=== PATIENT | female | born 1945 | race Two or more races ===

== ENCOUNTER 2017-07-02 17:07 | Emergency (ER) | payer MEDICARE, MEDICAID ==
[~2017-07-02] VITALS: Ht 157.5 cm; Wt 65.8 kg
[2017-07-02] MEDS ORDERED: MYRBETRIQ25 MG PO ×2 (17:22→20:11)
[2017-07-02 17:25] VITALS: BP 139/64
[2017-07-02] MEDS ORDERED: Ketorolac 30mg Inj IV ONE (17:45)
[2017-07-02 17:57] LABS: APPEARANCE,URINE CLEAR; BILIRUBIN, URINE NEGATIVE (NEGATIVE); COLOR,URINE PALE YELLOW; GLUCOSE, URINE (UA) NEGATIVE (NEGATIVE); KETONES,URINE NEGATIVE (NEGATIVE); LEUKOCYTE ESTERASE ,URINE 2+ (NEGATIVE); NITRITE,URINE NEGATIVE (NEGATIVE); PH,URINE 7 (4.5-8.0); PROTEIN,URINE NEGATIVE (NEGATIVE); UROBILINOGEN,URINE NORMAL MG/DL (0.0-1.0)
[2017-07-02 18:28] LABS: BASOPHILS % (AUTO) 0.8 % (0.0-2.0); EOSINOPHILS % (AUTO) 1.8 % (0.0-3.0); HEMATOCRIT 26.1 % (37.0-47.0); LYMPHOCYTES % (AUTO) 29.8 % (20.0-45.0); MEAN CORPUSCULAR VOLUME 59 FL (80-99); MONOCYTES % (AUTO) 13.5 % (1.0-10.0); NEUTROPHILS % (AUTO) 54.1 % (45.0-75.0); PLATELET COUNT 322 K/UL (150-450); RED BLOOD COUNT 4.41 M/UL (4.20-5.40); RED CELL DISTRIBUTION WIDTH 12.2 % (11.6-14.8); WHITE BLOOD COUNT 8.4 K/UL (4.8-10.8)
[2017-07-02 18:45] LABS: ANION GAP 6 mmol/L (5-15); BLOOD UREA NITROGEN 18 mg/dL (7-18); CARBON DIOXIDE 30 MMOL/L (21-32); CHLORIDE 103 MMOL/L (98-107); CREATININE 0.9 MG/DL (0.55-1.30); POTASSIUM 4.2 MMOL/L (3.5-5.1); SODIUM 138 MMOL/L (136-145)
--- NOTE | 2017-07-02 18:49 | Emergency Room Report ---
History of Present Illness General Chief Complaint: General Complaint Source: Patient Present Illness HPI [id number] walk-in with 2 weeks left flank pain and hematuria States history of renal stones Saw PMD?/nephro 2 weeks ago, had "xray" that showed 2 stones (i think she means CT) but no further action taken by doctor Denies associated abd pain, nausea/vomiting, diarrhea Didnt take OTC meds History of anemia, feels "weak and tired" lately Allergies: Coded Allergies: HYDROCODONE (Verified Allergy, Unknown, 07/02/17) IRON (Verified Allergy, Unknown, 07/02/17) MORPHINE (Verified Allergy, Unknown, 07/02/17) OXYCODONE (Verified Allergy, Unknown, 07/02/17) Patient History Past Medical History: other - Anemia, kidney stones Past Surgical History: none Pertinent Family History: none Social History: Denies: smoking, alcohol use, drug use Last Menstrual Period: 1988 Now: No Immunizations: UTD Reviewed Nursing Documentation: PMH: Agreed, PSxH: Agreed Review of Systems All Other Systems: negative except mentioned in HPI Physical Exam Vital Signs Date Time Temp Pulse Resp B/P (MAP) Pulse Ox O2 Delivery O2 Flow Rate FiO2 07/02/17 17:15 98.1 83 19 100/63 98 Room Air Sp02 EP Interpretation: reviewed, normal General Appearance: normal inspection, well appearing, no apparent distress, alert, GCS 15, non-toxic Head: normocephalic, atraumatic Eyes: bilateral eye PERRL, bilateral eye EOMI ENT: normal ENT inspection, hearing grossly normal, normal pharynx, no angioedema, normal voice, TMs + canals normal, uvula midline, moist mucus membranes Neck: normal inspection, full range of motion, supple, thyroid normal, no meningismus, no bony tend Respiratory: normal inspection, lungs clear, normal breath sounds, no rhonchi, no respiratory distress, no retraction, no accessory muscle use, no wheezing, speaking full sentences Cardiovascular #1: regular rate, rhythm, no edema, no JVD, normal capillary refill Gastrointestinal: normal inspection, normal bowel sounds, non tender, soft, no mass, no peritonitis, non-distended, no guarding, no hernia, no pulsatile mass Genitourinary: CVA tenderness (L) Musculoskeletal: normal inspection, back normal, normal range of motion, no calf tenderness, pelvis stable, Feng's Sign negative Neurologic: normal inspection, alert, oriented x3, responsive, trial consultant III-XII nml as tested, motor strength/tone normal, cerebellar normal, normal gait, speech normal Psychiatric: normal inspection, judgement/insight normal, mood/affect normal, no suicidal/homicidal ideation, no delusions Skin: normal inspection, normal color, no rash Lymphatic: normal inspection, no adenopathy Medical Decision Making Diagnostic Impression: Primary Impression: Anemia Qualified Codes: D50.9 - Iron deficiency anemia, unspecified Additional Impression: Pyelonephritis ER Course Left sided pain for 2 weeks with hematuria, + CVAT VSS, afebrile UA negative for hematuria, multiple WBCs Hb 8, symptomatic anemia. Will transfuse 2U PRBCs Empiric Rocephin given for UTI, ?Pyelo given flank pain, CVAT CT: no stones, or signs of recent ureter obstruction med/surg admission Dr Emmanuel admitted to at 9pm Cholo is PMD Rhythm Strip Diag. Results EP Interpretation: yes Rate: 73 Rhythm: NSR, no PVC's, no ectopy Last Vital Signs Date Time Temp Pulse Resp B/P (MAP) Pulse Ox O2 Delivery O2 Flow Rate FiO2 07/02/17 18:14 98.1 07/02/17 17:25 74 17 139/64 96 Room Air Status: improved Disposition: ADMITTED INPATIENT Condition: Stable KATELYNN JULIEN M.D. Jul 02, 2017 18:49
[2017-07-02 18:50] LABS: ALANINE AMINOTRANSFERASE 47 U/L (12-78); ALBUMIN 2.8 G/DL (3.4-5.0); ALBUMIN/GLOBULIN RATIO 0.6 (1.0-2.7); ALKALINE PHOSPHATASE 59 U/L (46-116); ASPARTATE AMINO TRANSFERASE 25 U/L (15-37); BILIRUBIN,TOTAL 0.2 MG/DL (0.2-1.0)
[2017-07-02] MEDS ORDERED: cefTRIAXone 1 GM in NS 55 ML IVPB ONE (19:00)
[2017-07-02 19:42] VITALS: BP 103/84
[2017-07-02] MEDS ORDERED: LYRICA75 M1 ORAL (20:11)
[2017-07-02] MEDS ORDERED: TEMAZEPAM7.5 MG ORAL (20:11)
[2017-07-02] MEDS ORDERED: LEVETIRACE100 MG/1 M PO (20:11)
[2017-07-02] MEDS ORDERED: DIPHENHYDRAMINE25 M1 ORAL (20:11)
[2017-07-02] MEDS ORDERED: ZANTAC150 MG ORAL (20:11)
[2017-07-02] MEDS ORDERED: ROXICODONE15 MG ORAL (20:11)
[2017-07-02] MEDS ORDERED: KEFLEX500 MG ORAL (21:35)
[2017-07-02 22:40] VITALS: BP 103/84
--- NOTE | 2017-07-03 10:21 | Diagnostic Imaging Report ---
Indication: Left flank pain Technique: Spiral acquisitions obtained through the abdomen and pelvis. No oral or IV contrast utilized, per urinary stone protocol. Multiplanar reconstructions were generated. Total dose length product 687.24 mGycm. CTDIvol(s) 14.36 mGy. Dose reduction achieved using automated exposure control Comparison: 10/04/2008 Findings: No ureteral calculi, hydronephrosis, or hydroureter. There is some scarring of the left kidney, particularly in the lower pole. There is a lower pole 12 mm calcification which is either parenchymal or calyceal, also demonstrated on the previous study. Other scattered calcifications likely represent a combination of parenchymal and calyceal calcifications. Lack of IV contrast limits assessment of the renal parenchyma. Multiple left renal cysts are again demonstrated. There is a lower pole right renal cyst as well as multiple subcentimeter low-attenuation right renal lesions which are too small to characterize. No right renal or ureteral calculi, right hydronephrosis or hydroureter. The bladder is nondistended, unremarkable. There is questionably slight indistinctness of the aortic margin and minimal infiltration of the periaortic fat surrounding the abdominal aorta. No evidence of aortic aneurysm demonstrated. Lack of IV contrast limits assessment of the other solid organs. There is a small gallstone present. The liver, pancreas are unremarkable. The spleen is enlarged, measuring 13.4 cm long axis dimension. The adrenals are unremarkable. The heart is enlarged. There is some atelectasis or scarring in the lingula and left lower lobe. Minimal scarring at the right medial lung base also demonstrated. Bones demonstrate degenerative spondylosis changes. There has been interim posterior fusion of L5 and S1, with fusion hardware in place. There are some degenerative changes of the right hip. The appendix is normal. No evidence of diverticulosis or diverticulitis. No small bowel distention. There is questionably trace fluid in the pelvic cul-de-sac. No free intraperitoneal air. There is questionable with small sliding-type hiatal hernia. The remainder the stomach is unremarkable. The duodenum is unremarkable. Impression: No evidence of hydronephrosis or ureteral calculus Multiple calcifications in the left kidney likely reflect a combination of calyceal calculi and dystrophic calcification secondary to parenchymal scarring. These are unchanged from the prior study of 10/04/2008 Interim development of indistinctness of the aortic wall and infiltration of the periaortic fat. This raises concern for vasculitis Cholelithiasis, also previously demonstrated Splenomegaly Interim spinal fusion Trace free pelvic fluid, of uncertain significance but not physiologic in a is menopausal female Questionable small sliding-type hiatal hernia Degenerative spondylosis Bilateral renal cysts. Subcentimeter low-attenuation right renal lesions, too small to characterize, most likely benign simple cysts. No further follow-up necessary The CT scanner at [facility] is accredited by the [employer] and the scans are performed using protocols designed to limit radiation exposure to as low as reasonably achievable to attain images of sufficient resolution adequate for diagnostic evaluation.
== END 2017-07-02 22:23 | disposition home or self-care (01) ==
LOC: EMR 18:45
DX: D64.9 Anemia, unspecified (principal); N12 Tubulo-interstitial nephritis, not specified as acute or chronic; Z88.5 Allergy status to narcotic agent; Z88.8 Allergy status to other drugs, medicaments and biological substances; K80.20 Calculus of gallbladder without cholecystitis without obstruction; R16.1 Splenomegaly, not elsewhere classified; Z98.1 Arthrodesis status; M47.817 Spondylosis without myelopathy or radiculopathy, lumbosacral region
CPT/HCPCS: 36415; 74176; 80053; 81003; 83690; 85025; 86850; 86900; 86901; 86920; 87086; 96361; 96365; 96375; 99284; J0696; J1885; P9016

== ENCOUNTER 2018-10-29 23:07 | Emergency (ER) | payer MEDICARE, MEDICAID ==
[~2018-10-29] VITALS: Ht 162.6 cm; Wt 65.8 kg
[~2018-10-29 23:07] MED LIST: DIPHENHYDRAMINE25 M1 ORAL; KEFLEX500 MG ORAL; LEVETIRACE100 MG/1 M PO; LYRICA75 M1 ORAL; MYRBETRIQ25 MG PO; ROXICODONE15 MG ORAL; TEMAZEPAM7.5 MG ORAL; ZANTAC150 MG ORAL
[2018-10-29 23:17] VITALS: BP 121/65
--- NOTE | 2018-10-29 23:19 | NUR ---
ER Nurse Note: Pt BIBA 861 from home c/o right knee pain. Pt stated she cannot walk, 10/10 sharp pain. Per pt; she stated she has pain in her right knee due to fluid build. Right knee is swollen, pain with slight touch. Pt stated she has a surgery on her right knee on January 04. Pt a&ox4, VSS, will continue to [facility].
[2018-10-29] MEDS ORDERED: Ketorolac 30mg Inj IV ONE (23:30)
[2018-10-30 00:01] LABS: BASOPHILS % (AUTO) 1.7 % (0.0-2.0); EOSINOPHILS % (AUTO) 2.8 % (0.0-3.0); HEMATOCRIT 31.6 % (37.0-47.0); HEMOGLOBIN 9.3 G/DL (12.0-16.0); LYMPHOCYTES % (AUTO) 31.5 % (20.0-45.0); MEAN CORPUSCULAR VOLUME 59 FL (80-99); MONOCYTES % (AUTO) 12.2 % (1.0-10.0); NEUTROPHILS % (AUTO) 51.8 % (45.0-75.0); PLATELET COUNT 191 K/UL (150-450); RED BLOOD COUNT 5.38 M/UL (4.20-5.40); RED CELL DISTRIBUTION WIDTH 13.5 % (11.6-14.8); WHITE BLOOD COUNT 8.1 K/UL (4.8-10.8)
[2018-10-30 00:14] LABS: ANION GAP 9 mmol/L (5-15); BLOOD UREA NITROGEN 24 mg/dL (7-18); CALCIUM 9.5 MG/DL (8.5-10.1); CARBON DIOXIDE 27 MMOL/L (21-32); CHLORIDE 105 MMOL/L (98-107); CREATININE 0.9 MG/DL (0.55-1.30); POTASSIUM 3.5 MMOL/L (3.5-5.1); SODIUM 141 MMOL/L (136-145)
[2018-10-30 00:19] LABS: ALANINE AMINOTRANSFERASE 22 U/L (12-78); ALBUMIN 3.3 G/DL (3.4-5.0); ALBUMIN/GLOBULIN RATIO 0.9 (1.0-2.7); ALKALINE PHOSPHATASE 79 U/L (46-116); ASPARTATE AMINO TRANSFERASE 13 U/L (15-37); BILIRUBIN,TOTAL 0.2 MG/DL (0.2-1.0)
--- NOTE | 2018-10-30 00:35 | Emergency Room Report ---
History of Present Illness General Chief Complaint: Pain Source: Patient Present Illness HPI Patient is a 73-year-old female presented after increased pain to the right knee. Patient had gradual onset of symptoms. She had reportedly had increased discomfort and was previously scheduled for arthroscopic surgery on her left knee. Patient had previously seen Dr. Chuy Russell. Patient is followed by Dr. Emmanuel. Patient stated that she had been having increased swelling as well as difficulty with bending her knee.Patient reports having allergies to multiple pain medications. She had prior history of anemia secondary to thalassemia Allergies: Coded Allergies: HYDROCODONE (Verified Allergy, Unknown, 07/02/17) IRON (Verified Allergy, Unknown, 07/02/17) MORPHINE (Verified Allergy, Unknown, 07/02/17) OXYCODONE (Verified Allergy, Unknown, 07/02/17) TRAMADOL (Unverified Allergy, Unknown, 10/29/18) Patient History Past Medical History: see triage record Last Menstrual Period: 1985 Now: No Reviewed Nursing Documentation: PMH: Agreed; PSxH: Agreed Nursing Documentation-PMH Past Medical History: No History, Except For Hx Hypertension: Yes Review of Systems All Other Systems: negative except mentioned in HPI Physical Exam Vital Signs Date Time Temp Pulse Resp B/P (MAP) Pulse Ox O2 Delivery O2 Flow Rate FiO2 10/29/18 23:01 97.7 76 17 121/65 (83) 98 Room Air Sp02 EP Interpretation: reviewed, normal General Appearance: normal inspection, well appearing, no apparent distress, alert, Chronically Ill Head: atraumatic ENT: normal ENT inspection, hearing grossly normal, normal voice Neck: normal inspection, full range of motion, supple, no bony tend Respiratory: normal inspection, lungs clear, normal breath sounds, no respiratory distress, no retraction, no wheezing Cardiovascular #1: regular rate, rhythm, no edema Gastrointestinal: normal inspection, normal bowel sounds, non tender, soft, no guarding, no hernia Genitourinary: no CVA tenderness Musculoskeletal: normal inspection, back normal, normal range of motion Neurologic: normal inspection, alert, responsive, speech normal Psychiatric: normal inspection, judgement/insight normal, mood/affect normal Skin: normal inspection, normal color, no rash Medical Decision Making Diagnostic Impression: Primary Impression: Meniscus, medial, derangement ER Course Patient presented for right knee pain. Differential diagnosis include was not limited to fracture, contusion, sprain, meniscal injury among others. Patient was noted to have long-standing pain to her knee. She was currently scheduled for orthopedic surgery for meniscal injury. X-ray imaging of the right knee read by radiology showed degenerative changes without evident fracture patient does not show any erythema or ligamentous instability of the knee. Patient was placed in a knee immobilizer and given prescription for topical analgesics. She was advised to follow-up with her orthopedic surgeon for recheck. Patient was advised to return if she had any worsening of condition or other concerns Last Vital Signs Date Time Temp Pulse Resp B/P (MAP) Pulse Ox O2 Delivery O2 Flow Rate FiO2 10/29/18 23:17 97.7 76 17 121/65 98 Room Air Status: improved Disposition: HOME, SELF-CARE Condition: Stable Scripts Diclofenac Sodium (VOLTAREN) 100 Gm Gel..gram. 100 GM TP DAILY, #120 GM Prov: Rivas Scales MD 10/30/18 Referrals: Jayesh Emmanuel MD (PCP) Rivas Scales MD Oct 30, 2018 00:35
--- NOTE | 2018-10-30 00:54 | NUR ---
ER Nurse Note: All orders completed per ERMD orders. Pt calm, coopearative, a&ox4, VSS. x-ray taken, awaiting results. Pt cleared for food and water; provided beverage to pt. All safety measures met; will continue to montior.
[2018-10-30] MEDS ORDERED: VOLTAREN100 G1 TP (01:18)
[2018-10-30 01:38] VITALS: BP 142/84
--- NOTE | 2018-10-30 01:40 | NUR ---
ER Nurse Note: All orders completed per ERMD orders. Pt seen, treated, medically cleared for discharge by ERMD. Discharge instructions given with repeat verbazliaion by pt. Instructed pt to follow up with primary care provider. Pt a&ox4, VSS, no signs of distress. ID band removed. IV removed; site clean and bandaged. Pt left with all belongings with steady gait via own transportation.
--- NOTE | 2018-10-30 10:14 | Diagnostic Imaging Report ---
Indication: Pain Knee pain/trauma 3 views of the right knee were obtained. Findings: No acute fracture, malalignment, or joint effusion are identified. Joint space is relatively well-maintained. Bones are osteopenic. The study is limited as the lateral view is oblique. Impression: Negative for acute findings.
== END 2018-10-30 01:41 | disposition home or self-care (01) ==
LOC: EDUNIT# 23:07 → EDBD 23:07 → EMR 23:30
DX: M23.303 Other meniscus derangements, unspecified medial meniscus, right knee (principal); Z88.6 Allergy status to analgesic agent; Z88.8 Allergy status to other drugs, medicaments and biological substances; I10 Essential (primary) hypertension
CPT/HCPCS: 29505; 36415; 73564; 80053; 85025; 85610; 85730; 96374; 99283; J1885

== ENCOUNTER 2019-06-30 18:48 | Inpatient (IN) | payer MEDICARE, MEDICAID ==
[~2019-06-30] VITALS: Ht 167.6 cm; Wt 73.5 kg
[~2019-06-30 18:48] MED LIST changes: +VOLTAREN100 G1 TP
--- NOTE | 2019-06-30 18:49 | NUR ---
ED Nurse Note: Patient brought into ED from home by ambulance RA 66 patient reports back pain radiating to her right toes for 1 week, which is getting worse. 03/08 today, unable to move out of the bed. patient is alert awake x3. patient on a hospital gown. on a cardiac monitors.
[2019-06-30] MEDS ORDERED: Morphine Sulfate 4mg/ml Inj (IV USE ONLY) IVP ONE (19:00)
[2019-06-30] MEDS ORDERED: DiphenhydrAMINE 50mg/ml Inj IVP ONE (19:00)
--- NOTE | 2019-06-30 19:00 | NUR ---
HAND-OFF: Report given to Talha Carrion RN.
[2019-06-30 19:06] VITALS: BP 156/115
--- NOTE | 2019-06-30 19:15 | NUR ---
ED Nurse Note: radiology at bedside for xray
--- NOTE | 2019-06-30 19:20 | NUR ---
ED Nurse Note: iv access established. blood collected; sent down to lab. unable to collecte urine; patient states she will provide when able.
--- NOTE | 2019-06-30 19:30 | NUR ---
ED Nurse Note: patient medicated; tolerated well. family at bedside. aware of pending admission. pt down to ct with 2 radioisotope technologist.
--- NOTE | 2019-06-30 19:35 | Diagnostic Imaging Report ---
History: CP Exam: XR CXR 1 VIEW Comparison: 08/01/2009 FINDINGS: Patchy bilateral increased areas of pulmonary markings now seen which may be related to chronic interstitial changes with a pneumonitis or mild edema difficult to entirely exclude. No focal consolidation or evidence of pleural effusion. The cardiac and mediastinal contours appear within limits. The visualized osseous structures appear within limits. IMPRESSION: Patchy bilateral increased areas of pulmonary markings now seen which may be related to chronic interstitial changes with a pneumonitis or mild edema difficult to entirely exclude. No focal consolidation or evidence of pleural effusion.
[2019-06-30 19:48] LABS: BASOPHILS % (AUTO) 1.5 % (0.0-2.0); EOSINOPHILS % (AUTO) 0.5 % (0.0-3.0); HEMATOCRIT 35.8 % (37.0-47.0); LYMPHOCYTES % (AUTO) 13.1 % (20.0-45.0); MEAN CORPUSCULAR VOLUME 59 FL (80-99); MONOCYTES % (AUTO) 9.7 % (1.0-10.0); NEUTROPHILS % (AUTO) 75.3 % (45.0-75.0); PLATELET COUNT 209 K/UL (150-450); RED BLOOD COUNT 6.03 M/UL (4.20-5.40); RED CELL DISTRIBUTION WIDTH 14.8 % (11.6-14.8); WHITE BLOOD COUNT 12.9 K/UL (4.8-10.8)
--- NOTE | 2019-06-30 19:50 | Emergency Room Report ---
History of Present Illness General Chief Complaint: Multiple Trauma/Fall Source: Patient Present Illness HPI Patient presents in acute distress Reporting that she had a fall towards her right side with pain to her right facial area patient reports that she has been bedbound for the past 5 to 6 days Home health nurse had reported that she should try and avoid hospitals today trying to get out of bed Patient feels that her legs did not have any energy also felt increased pain to be right leg and sustained a fall towards the right side Denies any chest pain denies any abdominal pain patient appears to have Urinated on herself after this fall Allergies: Coded Allergies: CODEINE (Unverified Allergy, Unknown, 06/30/19) HYDROCODONE (Verified Allergy, Unknown, 07/02/17) IRON (Verified Allergy, Unknown, 07/02/17) MORPHINE (Verified Allergy, Unknown, 07/02/17) OXYCODONE (Verified Allergy, Unknown, 07/02/17) TRAMADOL (Unverified Allergy, Unknown, 10/29/18) Patient History Past Medical History: see triage record Reviewed Nursing Documentation: PMH: Agreed; PSxH: Agreed Nursing Documentation-PMH Hx Hypertension: Yes Review of Systems All Other Systems: negative except mentioned in HPI Physical Exam Vital Signs Date Time Temp Pulse Resp B/P (MAP) Pulse Ox O2 Delivery O2 Flow Rate FiO2 06/30/19 18:39 98.4 96 16 201/98 (132) 98 Room Air Sp02 EP Interpretation: reviewed, normal General Appearance: mild distress - In acute pain Head: other - Ecchymosis and bruising to the right lateral eyebrow area Eyes: bilateral eye PERRL, bilateral eye EOMI ENT: EOM grossly intact, normal pharynx Neck: supple, no meningismus, no bony tend Respiratory: lungs clear, no respiratory distress, no retraction Cardiovascular #1: regular rate, rhythm Gastrointestinal: normal bowel sounds, non tender Genitourinary: no CVA tenderness Musculoskeletal: other - Patient has discomfort on palpation of the right posterior superior iliac crest also right-sided paralumbar region L4-L5 area Neurologic: alert, oriented x3 Psychiatric: normal inspection Skin: no rash Lymphatic: no adenopathy Medical Decision Making Diagnostic Impression: Primary Impression: Back pain Additional Impressions: Weakness Unable to ambulate ER Course Given the patient's history and presentation multiple differentials are in consideration including but not limited to neurological neurosurgical,, metabolic cardiac process patient had multiple imaging obtained no obvious acute process is seen Patient is mildly anemic Otherwise requiring multiple repeat pain medication patient also continues to complain of difficulty ambulating and will require further inpatient care Labs Test 06/30/19 19:20 07/01/19 11:30 White Blood Count 12.9 K/UL (4.8-10.8) Red Blood Count 6.03 M/UL (4.20-5.40) Hemoglobin 10.0 G/DL (12.0-16.0) Hematocrit 35.8 % (37.0-47.0) Mean Corpuscular Volume 59 FL (80-99) Mean Corpuscular Hemoglobin 16.6 PG (27.0-31.0) Mean Corpuscular Hemoglobin Concent 28.0 G/DL (32.0-36.0) Red Cell Distribution Width 14.8 % (11.6-14.8) Platelet Count 209 K/UL (150-450) Mean Platelet Volume 14.2 FL (6.5-10.1) Neutrophils (%) (Auto) 75.3 % (45.0-75.0) Lymphocytes (%) (Auto) 13.1 % (20.0-45.0) Monocytes (%) (Auto) 9.7 % (1.0-10.0) Eosinophils (%) (Auto) 0.5 % (0.0-3.0) Basophils (%) (Auto) 1.5 % (0.0-2.0) Prothrombin Time 10.2 SEC (9.30-11.50) Prothromb Time International Ratio 1.0 (0.9-1.1) Activated Partial Thromboplast Time 31 SEC (23-33) Sodium Level 140 MMOL/L (136-145) Potassium Level 3.8 MMOL/L (3.5-5.1) Chloride Level 101 MMOL/L (98-107) Carbon Dioxide Level 28 MMOL/L (21-32) Anion Gap 11 mmol/L (5-15) Blood Urea Nitrogen 17 mg/dL (7-18) Creatinine 0.8 MG/DL (0.55-1.30) Estimat Glomerular Filtration Rate mL/min (>60) Glucose Level 92 MG/DL (74-106) Calcium Level 9.7 MG/DL (8.5-10.1) Total Bilirubin 0.5 MG/DL (0.2-1.0) Aspartate Amino Transf (AST/SGOT) 24 U/L (15-37) Alanine Aminotransferase (ALT/SGPT) 25 U/L (12-78) Alkaline Phosphatase 92 U/L (46-116) Troponin I 0.000 ng/mL (0.000-0.056) Total Protein 7.9 G/DL (6.4-8.2) Albumin 4.0 G/DL (3.4-5.0) Globulin 3.9 g/dL Albumin/Globulin Ratio 1.0 (1.0-2.7) Urine Color Pale yellow Urine Appearance Clear Urine pH 5 (4.5-8.0) Urine Specific [place] 1.015 (1.005-1.035) Urine Protein Negative (NEGATIVE) Urine Glucose (UA) Negative (NEGATIVE) Urine Ketones Negative (NEGATIVE) Urine Blood 1+ (NEGATIVE) Urine Nitrite Negative (NEGATIVE) Urine Bilirubin Negative (NEGATIVE) Urine Urobilinogen Normal MG/DL (0.0-1.0) Urine Leukocyte Esterase 2+ (NEGATIVE) Urine RBC 0-2 /HPF (0 - 2) Urine WBC 20-30 /HPF (0 - 2) Urine Squamous Epithelial Cells Few /LPF (NONE/OCC) Urine Bacteria Few /HPF (NONE) Rhythm Strip Diag. Results EP Interpretation: yes Rate: 77 Rhythm: NSR, no PVC's, no ectopy Chest X-Ray Diagnostic Results Chest X-Ray Diagnostic Results : Chest X-Ray Ordered: Yes # of Views/Limited/Complete: 1 View Indication: Chest Pain EP Interpretation: Yes Interpretation: no consolidation, no effusion, no pneumothorax Impression: No acute disease Electronically Signed by: Malathi Cruz DO CT/MRI/US Diagnostic Results CT/MRI/US Diagnostic Results : Impression CT L-spineIMPRESSION: No fracture or malalignment. Status post L4-5 fusion and laminectomy with spray artifact from bilateral hardware. Hardware appears intact. CT pelvic: no Acute disease CT head no acute disease Last Vital Signs Date Time Temp Pulse Resp B/P (MAP) Pulse Ox O2 Delivery O2 Flow Rate FiO2 06/30/19 19:07 96 21 Room Air 06/30/19 19:06 98.4 156/115 93 Status: improved Disposition: ADMITTED INPATIENT Condition: Serious Malathi Cruz DO Jun 30, 2019 19:50
--- NOTE | 2019-06-30 20:00 | NUR ---
ED Nurse Note: pt back from imaging. nad. reattached to monitor. will continue to monitor
[2019-06-30 20:18] LABS: ANION GAP 11 mmol/L (5-15); BLOOD UREA NITROGEN 17 mg/dL (7-18); CALCIUM 9.7 MG/DL (8.5-10.1); CARBON DIOXIDE 28 MMOL/L (21-32); CHLORIDE 101 MMOL/L (98-107); CREATININE 0.8 MG/DL (0.55-1.30); POTASSIUM 3.8 MMOL/L (3.5-5.1); SODIUM 140 MMOL/L (136-145)
[2019-06-30 20:22] LABS: ALANINE AMINOTRANSFERASE 25 U/L (12-78); ALKALINE PHOSPHATASE 92 U/L (46-116); ASPARTATE AMINO TRANSFERASE 24 U/L (15-37); BILIRUBIN,TOTAL 0.5 MG/DL (0.2-1.0)
--- NOTE | 2019-06-30 20:35 | Diagnostic Imaging Report ---
History: TRAUMA Exam: CT L SPINE Without Contrast Technique more: CTDI is 21.70 mGy and DLP is 911.30 mGy-cm. Technique more: One or more of the following dose reduction techniques were used: automated exposure control, adjustment of the mA and/or kV according to patient size, use of iterative reconstruction technique. Comparison: None available FINDINGS: No fracture or malalignment. Status post L4-5 fusion and laminectomy with spray artifact from bilateral hardware. Hardware appears intact. Left-sided renal stones and calcifications with areas of cystic change. IMPRESSION: No fracture or malalignment. Status post L4-5 fusion and laminectomy with spray artifact from bilateral hardware. Hardware appears intact.
--- NOTE | 2019-06-30 20:38 | Diagnostic Imaging Report ---
History: TRAUMA Exam: CT HEAD Without Contrast Technique more: CTDI is 62.70 mGy and DLP is 1363.60 mGy-cm. Technique more: One or more of the following dose reduction techniques were used: automated exposure control, adjustment of the mA and/or kV according to patient size, use of iterative reconstruction technique. Comparison: None available FINDINGS: No intracranial hemorrhage, mass effect or calvarial fracture. The ventricles are within limits and midline. Right periorbital soft tissue swelling. The visualized paranasal sinuses, mastoids and orbits otherwise appear within limits. IMPRESSION: No intracranial hemorrhage, mass effect or calvarial fracture. Right periorbital soft tissue swelling.
--- NOTE | 2019-06-30 20:52 | Diagnostic Imaging Report ---
History: TRAUMA Exam: CT PELVIS Without Contrast Technique more: CTDI is 23.60 mGy and DLP is 889.90 mGy-cm. Technique more: One or more of the following dose reduction techniques were used: automated exposure control, adjustment of the mA and/or kV according to patient size, use of iterative reconstruction technique. Comparison: None available FINDINGS: No fracture or dislocation. No evidence of pelvic hematoma. Bilateral hamstring calcific tendinopathy suggested at the ischial tuberosities. Mild appearing left hip osteoarthrosis noted. Symmetric appearing SI joints and pubic symphysis appear intact. Possible herniation pit proximal right femur, incidental. IMPRESSION: No fracture or dislocation. No evidence of pelvic hematoma.
[2019-06-30 21:00] VITALS: BP 146/106
--- NOTE | 2019-06-30 21:55 | NUR ---
TRANSFER TO FLOOR: Patient transferred to [facility]-1 as ordered, per YORDAN MCFARLAND. Report given to TONE NORIEGA. PATIENT STABLE FOR TRANSFER. PT TRANSFERRED TO UNIT VIA GURNEY WITH [facility]. BELONGINGS AND ADMISSION PACKET SENT WITH PATIENT.
--- NOTE | 2019-06-30 22:10 | NUR ---
NURSE NOTES: Pt. received from Talha Carrion RN. Pt. AAOx4, on NC 2L, complaints of pain in right hip radiating to right lower extremity, no indications of respiratory distress at this time. IV right AC 18g asymptomatic, intact, and patent; saline locked. VS stable, skin intact, belongings checked and signed. Pt. oriented to room and floor. Will follow up with primary for admission orders. Bed is low and locked, side rails x2 up, bed alarm active, and call light is in reach. Will continue to monitor.
[2019-06-30] MEDS: Morphine Sulfate 2mg/ml Inj(IV/IM USE ONLY) IVP PRN (23:32)
[2019-07-01] VITALS: BP 131/71
[2019-07-01 04:00] VITALS: BP 146/69
[2019-07-01] MEDS: Morphine Sulfate 2mg/ml Inj(IV/IM USE ONLY) IVP PRN (04:32)
--- NOTE | 2019-07-01 05:20 | NUR ---
NURSE NOTES: Andry Kemp (pt.'s Son): [phone] Elham (pt.'s Rjzyciam-bj-nrp): [phone]
--- NOTE | 2019-07-01 07:48 | NUR ---
HAND-OFF: Report given to HARI Javier.
[2019-07-01 08:00] VITALS: BP 115/55
--- NOTE | 2019-07-01 08:00 | NUR ---
NURSE NOTES: received patient in bed, complaint of lower back pain with radiation to RLE. Pain medication not being managed by current pain med regimen, will contact provider. On 2L O2/min, no respiratory distress noted. Skin intact. RAC IV access, receives IVF. Bed locked at the lowest position possible, call light within easy reach, siderails up x2. Will continue to monitor patient and follow up with the plan of care.
[2019-07-01] MEDS: HYDROmorphone 1mg/ml Carpuject IVP PRN ×4 (09:39→23:05)
[2019-07-01] MEDS: Heparin 5000 units/ml inj SUBQ SCH ×2 (09:41→20:49)
[2019-07-01 12:00] VITALS: BP 113/70
[2019-07-01 12:02] LABS: APPEARANCE,URINE CLEAR; BILIRUBIN, URINE NEGATIVE (NEGATIVE); COLOR,URINE PALE YELLOW; GLUCOSE, URINE (UA) NEGATIVE (NEGATIVE); KETONES,URINE NEGATIVE (NEGATIVE); LEUKOCYTE ESTERASE ,URINE 2+ (NEGATIVE); NITRITE,URINE NEGATIVE (NEGATIVE); PH,URINE 5 (4.5-8.0); PROTEIN,URINE NEGATIVE (NEGATIVE); UROBILINOGEN,URINE NORMAL MG/DL (0.0-1.0)
--- NOTE | 2019-07-01 15:15 | History and Physical Report ---
DATE OF ADMISSION: 06/30/2019 CHIEF COMPLAINT: Back pain. HISTORY OF PRESENT ILLNESS: The patient is a 74-year-old female well known to me. She has a history of hypertensive heart disease, thalassemia. She presented from home with complaints of severe intractable back pain. According to the patient, she developed back pain approximately a week ago. It has become progressively worse and more severe. She has had prior back surgery done around outside hospital. According to the patient, she did sustain a fall at some point yesterday but is unclear. She has incontinence. She has had no focal weakness but her range of motion and activity is limited by severe pain. No reports of any fevers or chills. PAST MEDICAL HISTORY: As above. PAST SURGICAL HISTORY: Includes back surgery. CURRENT MEDICATIONS: Reconciled and reviewed. ALLERGIES: Include codeine, hydrocodone, oxycodone, tramadol, iron. FAMILY HISTORY: Noncontributory. SOCIAL HISTORY: Negative for tobacco, ethanol, or drugs. REVIEW OF SYSTEMS: GENERAL: No fever or chills. HEENT: No headaches or visual changes. CARDIOPULMONARY: No chest pain or shortness of breath. GASTROINTESTINAL: No nausea or vomiting. GENITOURINARY: No urgency, frequency. MUSCULOSKELETAL: No joint pain or swelling. NEUROLOGIC: No evidence of seizures. PHYSICAL EXAMINATION: VITAL SIGNS: Temperature 99.5, pulse 81, respirations 18, and blood pressure 146/69. GENERAL: The patient is well developed, she is in moderate amount of distress due to back pain. NECK: Supple. HEART: Regular rate and rhythm. LUNGS: Clear. ABDOMEN: Soft, nontender, nondistended. EXTREMITIES: Without clubbing, cyanosis, or edema. PERTINENT DATA: CT of the spine shows no fracture. There is evidence of an old L4-L5 fusion and laminectomy noted. White count 13,000, hemoglobin 10. Sodium 140. ASSESSMENT: This is a 74-year-old female admitted with complaints of back pain, the etiology of which is unclear. Suspect radiculopathy from disk disease but cannot rule out a fracture. PLAN: 1. MRI of the lumbar spine. 2. IV pain medications for pain control. 3. Check urinalysis. Dov Uomoto, M.D. DR: Tejas JOB#: [id number] CC:
[2019-07-01 16:00] VITALS: BP 123/72
--- NOTE | 2019-07-01 19:38 | NUR ---
HAND-OFF: Report given to HARI Peoples.
--- NOTE | 2019-07-01 19:40 | NUR ---
NURSE NOTES: Received patient on bed, awake and verbally responsive. denies any pain or discomfort. on 02 cannula @2lpm. no sob. iv line on the right ac. reiterated to call or ask for assistance. bed locked and in lowest position. call light and light button within easy reach. will continue plan of care.
[2019-07-01 20:00] VITALS: BP 120/70
[2019-07-02] VITALS: BP 135/76
[2019-07-02 04:00] VITALS: BP 119/76
--- NOTE | 2019-07-02 05:00 | NUR ---
NURSE NOTES: paged dr. castro regarding the fever from 100.6 and went down after 30 mins.
--- NOTE | 2019-07-02 07:31 | NUR ---
HAND-OFF: Report given to elizabeth soto.endorsed to f/u to md regarding feverx1.
[2019-07-02 08:00] VITALS: BP 137/61
[2019-07-02] MEDS: HYDROmorphone 1mg/ml Carpuject IVP PRN ×4 (08:01→21:13)
--- NOTE | 2019-07-02 08:40 | General Progress Note ---
Assessment/Plan Problem List: (1) Fever ICD Codes: R50.9 - Fever, unspecified SNOMED: 697736370 (2) UTI (urinary tract infection) ICD Codes: N39.0 - Urinary tract infection, site not specified SNOMED: 35420974 (3) Back pain ICD Codes: M54.9 - Dorsalgia, unspecified SNOMED: 018498653 (4) Weakness ICD Codes: R53.1 - Weakness SNOMED: 66996329 (5) Unable to ambulate ICD Codes: R26.2 - Difficulty in walking, not elsewhere classified SNOMED: 489529004 Status: stable, not improved Assessment/Plan: dc ivf lasix x 1 iv abx ordered follow up cultures mri spine Subjective ROS Limited/Unobtainable: No Constitutional: Reports: malaise, weakness HEENT: Reports: no symptoms Cardiovascular: Reports: no symptoms Respiratory: Reports: cough, shortness of breath Gastrointestinal/Abdominal: Reports: no symptoms Genitourinary: Reports: no symptoms Neurologic/Psychiatric: Reports: no symptoms Endocrine: Reports: no symptoms Hematologic/Lymphatic: Reports: no symptoms Allergies: Coded Allergies: CODEINE (Unverified Allergy, Unknown, 06/30/19) HYDROCODONE (Verified Allergy, Unknown, 07/02/17) IRON (Verified Allergy, Unknown, 07/02/17) MORPHINE (Verified Allergy, Unknown, 07/02/17) OXYCODONE (Verified Allergy, Unknown, 07/02/17) TRAMADOL (Unverified Allergy, Unknown, 10/29/18) All Systems: reviewed and negative except above Subjective no events. c/o pain. +fevers.+sob. back pain not any better Objective Last 24 Hour Vital Signs Date Time Temp Pulse Resp B/P (MAP) Pulse Ox O2 Delivery O2 Flow Rate FiO2 07/02/19 04:00 98.9 77 19 119/76 (90) 96 07/02/19 01:05 98.5 07/02/19 00:00 100.6 76 20 135/76 (95) 96 07/01/19 21:00 Nasal Cannula 2.0 07/01/19 20:00 97.6 72 19 120/70 (87) 94 07/01/19 18:44 97.6 07/01/19 16:00 97.6 79 18 123/72 (89) 93 07/01/19 12:00 98.3 84 18 113/70 (84) 95 07/01/19 09:00 Nasal Cannula 2.0 07/01/19 09:00 Nasal Cannula 2.0 Intake and Output 07/01/19 07/02/19 19:00 07:00 Intake Total 1625 ml 560 ml Balance 1625 ml 560 ml Intake Oral 560 ml IV Total 825 ml Other 800 ml # Voids 5 Laboratory Tests 07/01/19 11:30: Urine Color Pale yellow, Urine Appearance Clear, Urine pH 5, Urine Specific [place] 1.015, Urine Protein Negative, Urine Glucose (UA) Negative, Urine Ketones Negative, Urine Blood 1+H, Urine Nitrite Negative, Urine Bilirubin Negative, Urine Urobilinogen Normal, Urine Leukocyte Esterase 2+H, Urine RBC 0-2 , Urine WBC 20-30H, Urine Squamous Epithelial Cells Few, Urine Bacteria Few Height (Feet): 5 Height (Inches): 6.00 Weight (Pounds): 160 General Appearance: WD/WN, alert Neck: supple Cardiovascular: normal rate, regular rhythm Respiratory/Chest: rhonchi - bilaterally Abdomen: normal bowel sounds, non tender, soft, no organomegaly Edema: no edema noted Arm (L), no edema noted Arm (R), no edema noted Leg (L), no edema noted Leg (R), no edema noted Pedal (L), no edema noted Pedal (R), no edema noted Generalized Dov Watson MD Jul 02, 2019 08:40
[2019-07-02] MEDS: Heparin 5000 units/ml inj SUBQ SCH ×2 (09:17→21:12)
--- NOTE | 2019-07-02 09:25 | NUR ---
PT EVALUATION NOTE Patient seen for initial evaluation. Patient presents with generalized weakness and pain which impairs patient's ability to perform mobility tasks safely. Patient requires mod/max assist to roll to the left, declined to roll to the right or to perform OOB activities due to pain RLE. Patient will benefit from skilled inpatient PT intervention to address strength, balance and safety for improved level of independence with functional mobility. Recommend discharge to SNF for short term rehab once medically cleared by MD as patient lives alone. Patient may benefit from use of FWW for ambulation depending on patient's progress. Addendum: 07/02/19 at 1119 by REGIS HALL PT Amended: Links added.
[2019-07-02 09:51] LABS: BASOPHILS % (AUTO) 1.8 % (0.0-2.0); EOSINOPHILS % (AUTO) 0.6 % (0.0-3.0); HEMATOCRIT 27.9 % (37.0-47.0); HEMOGLOBIN 8.6 G/DL (12.0-16.0); LYMPHOCYTES % (AUTO) 25.5 % (20.0-45.0); MEAN CORPUSCULAR VOLUME 58 FL (80-99); MONOCYTES % (AUTO) 12.1 % (1.0-10.0); NEUTROPHILS % (AUTO) 60.1 % (45.0-75.0); PLATELET COUNT 173 K/UL (150-450); RED BLOOD COUNT 4.83 M/UL (4.20-5.40); RED CELL DISTRIBUTION WIDTH 13.1 % (11.6-14.8); WHITE BLOOD COUNT 9.1 K/UL (4.8-10.8)
[2019-07-02] MEDS: Piperacillin/Tazobactam 3.375 GM in NS 110 ML IVPB SCH ×2 (10:00→21:12)
[2019-07-02 10:17] LABS: ALANINE AMINOTRANSFERASE 22 U/L (12-78); ALBUMIN 2.9 G/DL (3.4-5.0); ALBUMIN/GLOBULIN RATIO 0.7 (1.0-2.7); ALKALINE PHOSPHATASE 66 U/L (46-116); ANION GAP 7 mmol/L (5-15); ASPARTATE AMINO TRANSFERASE 15 U/L (15-37); BILIRUBIN,TOTAL 0.4 MG/DL (0.2-1.0); BLOOD UREA NITROGEN 17 mg/dL (7-18); CALCIUM 9.2 MG/DL (8.5-10.1); CARBON DIOXIDE 28 MMOL/L (21-32); CHLORIDE 105 MMOL/L (98-107); CREATININE 0.9 MG/DL (0.55-1.30); SODIUM 140 MMOL/L (136-145)
--- NOTE | 2019-07-02 10:36 | NUR ---
MRI LUMBAR COMPLETED.
[2019-07-02 12:00] VITALS: BP 131/72
--- NOTE | 2019-07-02 13:57 | NUR ---
CASE MANAGEMENT:INITIAL REVIEW 06/30/2019 74 YR OLD FEMALE BIBA FROM HOME CC;MULTIPLE TRAUMA, FALL SI;BACK PAIN, WEAKNESS, UNABLE TO AMBULATE 98.4 96 21 201/98 93% ON RA WBC 12.9 H/H 10/35.8 SPINE, PELVIS, HEAD CT - NO FRACTURE, RIGHT PERIORBITAL SWELLING CXR - No focal consolidation or evidence of pleural effusion. S;IVF NS BOLUS X1 BENADRYL IV X1 ZOFRAN IV X1 ADMITTED TO MED SURG MED SURG STATUS DCP;FROM HOME CASE MANAGEMENT:REVIEW SI;FEVER, BACK PAIN, WEAKNESS, UNABLE TO AMBULATE, UTI 100.6 81 20 137/61 93% ON 2L NC H/H 8.6/27.9 IS;ZOSYN OV Q8 HRS HEPARIN SUBQ Q12 HRS DILAUDID IV Q4 HRS MORPHINE IV Q4 HRS MED SURG STATUS DCP;FROM HOME
[2019-07-02 16:00] VITALS: BP 109/67
--- NOTE | 2019-07-02 17:18 | Diagnostic Imaging Report ---
Indication: Back pain Technique: MRI examination of the lumbar spine was performed in a 1.5 Delmy magnet. Sequences obtained include sagittal and axial T1 and T2 fast spin echo, and sagittal STIR. Comparison: none Findings: Alignment: Normal Bone marrow signal: Normal Distal spinal cord/conus medullaris. Conus is seen at L1. The distal spinal cord is unremarkable. T12-L1: The central canal is patent. There is patency of the lateral recess and neural foramina demonstrated. Facets are unremarkable. The intervertebral disc appears normal in height. L1-2:The central canal is patent. There is patency of the lateral recess and neural foramina demonstrated. Facets are unremarkable. The intervertebral disc appears normal in height. L2-3:The central canal is patent. There is patency of the lateral recess and neural foramina demonstrated. Facets are mildly hypertrophic. The intervertebral disc appears normal in height. L3-4: There is loss of disc height, mild in degree. There is severe hypertrophy of the facets and ligamentum flavum. The neural foramina are partially obscured by hardware with the pedicle screws noted at L4. There is suggestion of foraminal stenosis mild to moderate in degree at this level. There is severe central canal stenosis at this level. There is narrowing of the lateral recess on the right. On the left the lateral recesses largely obscured by hardware. L4-5: There is loss of disc height. Laminectomy is noted at this level. Bilateral pedicle screws fusion rods demonstrated at L4 and at L5. The central canal is patent. There is no definite narrowing of the lateral recess. There is moderate to severe bilateral foraminal stenosis. Facets appear hypertrophic. L5-S1: Disc height is normal. There is narrowing of the lateral recess. Laminectomy noted at this level. Central AP diameter of the canal is well preserved. However hypertrophic facets compress on the lateral aspect of the canal. There is moderate to severe bilateral foraminal stenosis. Incidental findings: There are multiple cysts within both kidneys of varying size. Small bilateral pleural effusions are also suspected. IMPRESSION: Status post laminectomy at L4-5 and L5-S1 with fusion at both of these levels. Posterior pedicle screws and fusion rods and resultant susceptibility artifact limiting evaluation. Multilevel degenerative disease as described above. L3-4 is the most severe level showing severe stenosis of the central canal. Severe facet arthropathy ligamentum flavum redundancy. Right lateral recess narrowing. Obscured left lateral recess. Mild to moderate neural foraminal stenosis. L4-5: Moderate to severe neural foraminal stenosis due to facet arthropathy. L5-S1: Moderate to severe neural foraminal stenosis due to facet arthropathy. Narrowing of the lateral recess. Multiple bilateral renal cysts.
--- NOTE | 2019-07-02 19:41 | NUR ---
HAND-OFF: Report given to HARI [place].
--- NOTE | 2019-07-02 19:58 | NUR ---
NURSE NOTES: Received patient comfortably resting in bed without complaints.
[2019-07-02 20:31] VITALS: BP 120/61
[2019-07-03 00:22] VITALS: BP 127/57
[2019-07-03 04:00] VITALS: BP_SYST 117; BP_SYST 148; BP_DIAS 57; BP_DIAS 65
[2019-07-03] MEDS: Piperacillin/Tazobactam 3.375 GM in NS 110 ML IVPB SCH ×3 (04:38→20:33)
[2019-07-03 07:13] LABS: ALANINE AMINOTRANSFERASE 20 U/L (12-78); ALBUMIN 2.7 G/DL (3.4-5.0); ALBUMIN/GLOBULIN RATIO 0.7 (1.0-2.7); ALKALINE PHOSPHATASE 55 U/L (46-116); ANION GAP 4 mmol/L (5-15); ASPARTATE AMINO TRANSFERASE 14 U/L (15-37); BILIRUBIN,TOTAL 0.5 MG/DL (0.2-1.0); BLOOD UREA NITROGEN 22 mg/dL (7-18); CARBON DIOXIDE 31 MMOL/L (21-32); CHLORIDE 101 MMOL/L (98-107); CREATININE 1.1 MG/DL (0.55-1.30); POTASSIUM 3.2 MMOL/L (3.5-5.1); SODIUM 136 MMOL/L (136-145)
--- NOTE | 2019-07-03 07:23 | NUR ---
HAND-OFF: Report given to Taye Medina RN.
--- NOTE | 2019-07-03 07:24 | NUR ---
NURSE NOTES: Report received from Kapil NORIEGA. Patient is awake and alert x 4 eating breakfast. Patient currently on room air, does not appear to be in respiratory distress. 20 nicolasa IV noted in right ac, patent and flushes. Bedside commode at bedside, educated patient to call when wanting to get up to use commode. patient communicated she would. Patient has no complaints at this time. Will continue to follow plan of care.
[2019-07-03 08:00] VITALS: BP 120/54
[2019-07-03] MEDS: Heparin 5000 units/ml inj SUBQ SCH ×2 (08:35→20:33)
[2019-07-03 12:00] VITALS: BP 132/65
[2019-07-03] MEDS: Morphine Sulfate 2mg/ml Inj(IV/IM USE ONLY) IVP PRN (14:16)
--- NOTE | 2019-07-03 14:54 | General Progress Note ---
Assessment/Plan Problem List: (1) Fever ICD Codes: R50.9 - Fever, unspecified SNOMED: 583185008 (2) UTI (urinary tract infection) ICD Codes: N39.0 - Urinary tract infection, site not specified SNOMED: 75783660 (3) Back pain ICD Codes: M54.9 - Dorsalgia, unspecified SNOMED: 833901601 (4) Weakness ICD Codes: R53.1 - Weakness SNOMED: 47762266 (5) Unable to ambulate ICD Codes: R26.2 - Difficulty in walking, not elsewhere classified SNOMED: 310687782 Status: stable, not improved Assessment/Plan: dc ivf iv pain rx spin consult iv abx ordered follow up cultures mri spine reviewed. Subjective ROS Limited/Unobtainable: No Constitutional: Reports: malaise, weakness HEENT: Reports: no symptoms Cardiovascular: Reports: no symptoms Respiratory: Reports: no symptoms Gastrointestinal/Abdominal: Reports: no symptoms Genitourinary: Reports: no symptoms Neurologic/Psychiatric: Reports: numbness, paresthesia, tingling Endocrine: Reports: no symptoms Hematologic/Lymphatic: Reports: no symptoms Allergies: Coded Allergies: CODEINE (Unverified Allergy, Unknown, 06/30/19) HYDROCODONE (Verified Allergy, Unknown, 07/02/17) IRON (Verified Allergy, Unknown, 07/02/17) MORPHINE (Verified Allergy, Unknown, 07/02/17) OXYCODONE (Verified Allergy, Unknown, 07/02/17) TRAMADOL (Unverified Allergy, Unknown, 10/29/18) All Systems: reviewed and negative except above Subjective no events. c/o pain. fevers better. on abx for uti. +sob. back pain not any better. on iv pain. severe spinal stenosis on mri Objective Last 24 Hour Vital Signs Date Time Temp Pulse Resp B/P (MAP) Pulse Ox O2 Delivery O2 Flow Rate FiO2 07/03/19 12:00 98.0 82 18 132/65 (87) 94 07/03/19 09:00 Nasal Cannula 2.0 07/03/19 08:00 97.6 88 18 120/54 (76) 93 07/03/19 04:00 99.0 84 19 117/57 (77) 91 07/03/19 00:22 100.0 99 19 127/57 (80) 92 07/02/19 21:43 99.8 07/02/19 21:00 Nasal Cannula 2.0 07/02/19 20:31 99.8 103 19 120/61 (80) 92 07/02/19 16:00 98.0 109 17 109/67 (81) 95 Intake and Output 07/02/19 07/03/19 19:00 07:00 Intake Total 905 ml 165.0 ml Balance 905 ml 165.0 ml IV Total 105 ml 165.0 ml Other 800 ml # Voids 1 Laboratory Tests 07/03/19 06:05: Sodium Level 136, Potassium Level 3.2L, Chloride Level 101, Carbon Dioxide Level 31, Anion Gap 4L, Blood Urea Nitrogen 22H, Creatinine 1.1, Estimat Glomerular Filtration Rate , Glucose Level 117H, Calcium Level 9.0, Total Bilirubin 0.5, Aspartate Amino Transf (AST/SGOT) 14L, Alanine Aminotransferase ( ALT/SGPT) 20, Alkaline Phosphatase 55, Total Protein 6.7, Albumin 2.7L, Globulin 4.0, Albumin/Globulin Ratio 0.7L Height (Feet): 5 Height (Inches): 6.00 Weight (Pounds): 160 Objective General Appearance: WD/WN, alert Neck: supple Cardiovascular: normal rate, regular rhythm Respiratory/Chest: rhonchi - bilaterally Abdomen: normal bowel sounds, non tender, soft, no organomegaly Edema: no edema noted Arm (L), no edema noted Arm (R), no edema noted Leg (L), no edema noted Leg (R), no edema noted Pedal (L), no edema noted Pedal (R), no edema noted Generalized Dov Watson MD Jul 03, 2019 14:54
[2019-07-03 16:00] VITALS: BP 107/64
[2019-07-03] MEDS: Cyclobenzaprine 10mg Tab ORAL SCH (17:51)
--- NOTE | 2019-07-03 19:01 | NUR ---
HAND-OFF: Report given to Dariana NORIEGA.Patient in stable condition.
--- NOTE | 2019-07-03 19:59 | NUR ---
NURSE NOTES: Received patient awake, verbal, resting in bed, no complaints.
[2019-07-03 20:10] VITALS: BP 130/69
[2019-07-04 00:36] VITALS: BP 127/66
[2019-07-04] MEDS: Piperacillin/Tazobactam 3.375 GM in NS 110 ML IVPB SCH ×3 (03:54→23:00)
[2019-07-04 04:34] VITALS: BP 126/64
--- NOTE | 2019-07-04 07:13 | NUR ---
HAND-OFF: Report given to Emerita Sandoval RN.
--- NOTE | 2019-07-04 07:17 | NUR ---
NURSE NOTES: received report from HARI [place]. patient in bed, alert. oriented. verbally responsive. no respiratory distress noted. discomfort on back. seen by matthew Butler at the bedside. patient will be stay two to three days more for pain control and dc home. anticipate surgery next week. IV on LFA20, RFA22 intact. bed in the lowest position and locked. call light within reach. bedside commode. will continue to provide plan of care. Lspinal x ray expecting today.
--- NOTE | 2019-07-04 07:39 | General Progress Note ---
Assessment/Plan Problem List: (1) Fever ICD Codes: R50.9 - Fever, unspecified SNOMED: 556437904 (2) UTI (urinary tract infection) ICD Codes: N39.0 - Urinary tract infection, site not specified SNOMED: 00218479 (3) Back pain ICD Codes: M54.9 - Dorsalgia, unspecified SNOMED: 437660410 (4) Weakness ICD Codes: R53.1 - Weakness SNOMED: 50710418 (5) Unable to ambulate ICD Codes: R26.2 - Difficulty in walking, not elsewhere classified SNOMED: 499399673 Status: stable, not improved Assessment/Plan: dc ivf iv pain rx po steroids muscle relaxants. spin consult - may ultimately need surgery iv abx ordered follow up cultures mri spine reviewed. Subjective ROS Limited/Unobtainable: No Constitutional: Reports: malaise, weakness HEENT: Reports: no symptoms Cardiovascular: Reports: no symptoms Respiratory: Reports: shortness of breath Gastrointestinal/Abdominal: Reports: no symptoms Genitourinary: Reports: no symptoms Neurologic/Psychiatric: Reports: no symptoms Endocrine: Reports: no symptoms Hematologic/Lymphatic: Reports: no symptoms Allergies: Coded Allergies: CODEINE (Unverified Allergy, Unknown, 06/30/19) HYDROCODONE (Verified Allergy, Unknown, 07/02/17) IRON (Verified Allergy, Unknown, 07/02/17) MORPHINE (Verified Allergy, Unknown, 07/02/17) OXYCODONE (Verified Allergy, Unknown, 07/02/17) TRAMADOL (Unverified Allergy, Unknown, 10/29/18) All Systems: reviewed and negative except above Subjective have severe pain after therapy. pain better controlled this am- started on steroids, dilaudid, and muscle relaxants. no focal weakness or numbness. no incontinence Objective Last 24 Hour Vital Signs Date Time Temp Pulse Resp B/P (MAP) Pulse Ox O2 Delivery O2 Flow Rate FiO2 07/04/19 04:34 98.0 57 18 126/64 (84) 94 07/04/19 00:36 98.2 89 16 127/66 (86) 91 07/03/19 21:06 Nasal Cannula 2.0 07/03/19 20:10 98.4 92 17 130/69 (89) 91 07/03/19 16:00 97.6 86 18 107/64 (78) 95 07/03/19 12:00 98.0 82 18 132/65 (87) 94 07/03/19 09:00 Nasal Cannula 2.0 07/03/19 08:00 97.6 88 18 120/54 (76) 93 Intake and Output 07/03/19 07/04/19 19:00 07:00 Intake Total 765.0 ml 552.5 ml Balance 765.0 ml 552.5 ml Intake Oral 360 ml IV Total 165.0 ml 192.5 ml Other 600 ml # Voids 1 Height (Feet): 5 Height (Inches): 6.00 Weight (Pounds): 162 Objective General Appearance: WD/WN, alert Neck: supple Cardiovascular: normal rate, regular rhythm Respiratory/Chest: rhonchi - bilaterally Abdomen: normal bowel sounds, non tender, soft, no organomegaly Edema: no edema noted Arm (L), no edema noted Arm (R), no edema noted Leg (L), no edema noted Leg (R), no edema noted Pedal (L), no edema noted Pedal (R), no edema noted Generalized Dov Watson MD Jul 04, 2019 07:39
[2019-07-04 08:00] VITALS: BP 113/52
[2019-07-04] MEDS: Cyclobenzaprine 10mg Tab ORAL SCH ×3 (08:28→17:49)
[2019-07-04] MEDS: Heparin 5000 units/ml inj SUBQ SCH ×2 (08:29→23:01)
[2019-07-04 09:10] LABS: BASOPHILS % (AUTO) 0.6 % (0.0-2.0); EOSINOPHILS % (AUTO) 0.1 % (0.0-3.0); HEMATOCRIT 27.6 % (37.0-47.0); HEMOGLOBIN 8.5 G/DL (12.0-16.0); LYMPHOCYTES % (AUTO) 19.7 % (20.0-45.0); MEAN CORPUSCULAR VOLUME 57 FL (80-99); MONOCYTES % (AUTO) 7.5 % (1.0-10.0); NEUTROPHILS % (AUTO) 72.1 % (45.0-75.0); PLATELET COUNT 220 K/UL (150-450); RED BLOOD COUNT 4.81 M/UL (4.20-5.40); RED CELL DISTRIBUTION WIDTH 13.1 % (11.6-14.8); WHITE BLOOD COUNT 5.6 K/UL (4.8-10.8)
--- NOTE | 2019-07-04 09:12 | Consultation ---
Consult Note Consult Note full note dictated Assessment/Plan l45 fusion with L34 stenosis, L5s1 spondy. Pain managment. Pt wants her care to be transfered to dr vallecillo, her primary surgeon Junaid Kelly MD Jul 04, 2019 09:12
[2019-07-04 09:30] LABS: ALANINE AMINOTRANSFERASE 24 U/L (12-78); ALKALINE PHOSPHATASE 56 U/L (46-116); ANION GAP 6 mmol/L (5-15); ASPARTATE AMINO TRANSFERASE 14 U/L (15-37); BILIRUBIN,TOTAL 0.3 MG/DL (0.2-1.0); BLOOD UREA NITROGEN 25 mg/dL (7-18); CARBON DIOXIDE 32 MMOL/L (21-32); CHLORIDE 105 MMOL/L (98-107); POTASSIUM 4.3 MMOL/L (3.5-5.1); SODIUM 143 MMOL/L (136-145)
[2019-07-04 09:39] LABS: ALBUMIN 2.9 G/DL (3.4-5.0)
[2019-07-04 10:09] LABS: ALBUMIN/GLOBULIN RATIO 0.7 (1.0-2.7)
--- NOTE | 2019-07-04 11:00 | NUR ---
PT NOTE Attempted to see patient for PT treatment. Patient declining to participate with PT stating "I don't want to move my leg." Emerita NORIEGA notified, will follow.
--- NOTE | 2019-07-04 11:17 | NUR ---
[facility] ASSISTANT CONSULT SW received a consult for home safety evaluation. SW met w/ pt and completed the evaluation. Pt presents as A&O4x. Pt is able to make her needs. Pt resides alone at [address] [place] [address]. PT has two adult children, one son living in [place] and one daughter living out of state. Per pt, her son Andry Ham and Daughter In Law Elham [phone] visits pt every day. Pt has a caregiver/granddaughter Danieel who assists approximately 3x per week or more as needed. Her family provides transportation, preparing food, and assisting w/ any other needs. Per pt, she is independent w/ bathing and grooming. Pt states she does not have grab bars and using a shower chair. Pt reports she was ambulatory w/o DME prior to admission. Pt states there are two stairs at home and she believes it will not be an issue. Per pt, family support is sufficient at this time. Pt is the primary decision maker. Pt plans to return home upon DC. Pt provided verbal consent to contact her son Andry Ham [phone] in regards to home safety. SW spoke w/ Andry and addressed the safety concern and recommended to install grab bars and getting a shower chair if such equipment is not covered by medical insurance. Andry verbalized understanding. Pt states she would need a walker upon DC. Pt does not have any DME. SW discussed the case w/ assigned CM in regards to DME. SW to F/U as needed. Signed: 07/04/19 at 1128 by RAFAEL SAGASTUME <Co-Signature Required>
[2019-07-04 12:00] VITALS: BP 158/80
--- NOTE | 2019-07-04 12:15 | Consultation ---
DATE OF CONSULTATION: 07/04/2019 SPINE SURGICAL CONSULTATION CONSULTING PHYSICIAN: Junaid Kelly M.D. REASON FOR CONSULTATION: Severe back pain with radiation lower extremities. HISTORY OF PRESENT ILLNESS: The patient is a 74-year-old woman with history of hypertensive heart disease, thalassemia, who has had severe intractable back pain for approximately two weeks. The pain initially started down the right lower extremity and now has extended to involve both lower extremities. She finds it very difficult to stand or to walk. She has difficulty with rotating. She denies focal weakness, however, but indicates that she is unable to perform her activities due to pain. She does have a history of prior back surgery done in [address] Champ Singh at [facility]. I did have a telephone discussion about the patient's condition last night with Dr. Watson and after having reviewed the imaging studies had ordered standing, flex, extend x-rays. The patient currently is refusing these x-rays as she indicates that the pain is so severe that "it will kill her." PAST MEDICAL HISTORY: As above. PAST SURGICAL HISTORY: As above. MEDICATIONS: Reconciled and reviewed. ALLERGIES: Codeine, hydrocodone, oxycodone, tramadol, iron. PHYSICAL EXAMINATION: The patient is a very pleasant, elderly woman. She is lying flat in the hospital bed. She has a very difficult time rotating onto her sides. She describes the back pain at the base of her lower back. Any attempts to move her lower extremities or to do strength testing, she refuses due to her back pain. Very difficult to assess motor strength as a result. Even with the EHL, she has pain, but apparently the left EHL is notably weaker than the right side. Reflexes are symmetric. Sensation appears intact to light touch. DIAGNOSTIC DATA: An MRI and a CT scan was reviewed. The findings are both consistent with status post spinal fusion L4-L5, residual stenosis L4-L5, severe stenosis L3-L4, minimal anterolisthesis L5-S1, foraminal stenosis bilaterally L5-S1, advanced facet arthrosis L5-S1. A medial cortical breach of the L4 screw on the left side. DIAGNOSES: 1. Status post spinal fusion L4-L5. 2. Adjacent level disease L3-L4 and L5-S1. 3. Advanced facet arthrosis L5-S1. 4. Spondylolisthesis, presumed L5-S1. 5. L3-L4 severe stenosis. PLAN: I have had a detailed discussion with the patient. I have tried to explain the pathology as well as the need for flex, extend images to better identify if the L5-S1 levels are stable or not. The patient refuses. She states that this is too severe pain. Furthermore, she has indicated to me that she wants to return back to her original surgeon Dr. Champ Singh to have this problem fixed and that she does not want to have it done during this hospitalization. I would therefore recommend pain management, consideration for either oral or epidural steroid injections to at least help with her pain. It should be noted that her back has been essentially pain free for 10 years and this acute onset has been only present for about two weeks and that the likelihood of being able to get her symptomatology at least on the foreseeable future under control with pain management. At this point in time, I will sign off. Please re-consult pkanchan. Junaid Kelly M.D. DR: LUCRETIA JOB#: [id number] CC:
--- NOTE | 2019-07-04 12:58 | NUR ---
CASE MANAGEMENT:REVIEW SI;UNABLE TO AMBULATE. BACK PAIN. UTI. 98.2 57 18 158/80 91% 2L NC H/H 8.5/27.6 BUN 25 IS;DECADRON PO TID FLEXERIL PO TID ZOSYN IV Q8 HRS MED SURG STATUS DCP;FROM HOME
--- NOTE | 2019-07-04 14:14 | Diagnostic Imaging Report ---
Indication: Back pain Comparison: None Findings: 5 views of the lumbar spine were obtained. In addition, flexion and extension lateral views were obtained. There is a mild anterolisthesis at L5-S1. This is about 1 cm on all views. There does not appear to be any significant change with regard to the degree of anterolisthesis between the 3 views. Posterior fusion at L4-5 again noted with bilateral pedicle screws and fusion rods. Narrowing of L4-5 intervertebral disc is present. Alignment of the lumbar spine is normal otherwise including at L4. Sclerosis of the lumbar facets noted at multiple levels. Bones are osteopenic. Vertebral endplate osteophytes noted throughout the lower part of the thoracic spine. Aorta is moderately calcified. IMPRESSION: Mild anterolisthesis at L5-S1 without change between neutral, extension, and flexion views. Status post posterior instrumented fusion at L4-5. Mild narrowing of intervertebral disc. Multilevel facet arthropathy. Osteoporosis Atherosclerotic vascular disease
[2019-07-04] MEDS: Morphine Sulfate 2mg/ml Inj(IV/IM USE ONLY) IVP PRN (14:27)
[2019-07-04 16:00] VITALS: BP 157/78
--- NOTE | 2019-07-04 19:21 | NUR ---
HAND-OFF: Report given to HARI Tapia.
--- NOTE | 2019-07-04 19:30 | NUR ---
NURSE NOTES: Received patient in no apparent distress. A&OX4. NC 2L on, no s/s of respiratory distress noted. IV site patent and intact. Bed in lowest position. Call light within reach. Will continue to monitor.
[2019-07-04 20:00] VITALS: BP 155/72
[2019-07-05] VITALS: BP 160/74
[2019-07-05 04:00] VITALS: BP 112/67
[2019-07-05] MEDS: Piperacillin/Tazobactam 3.375 GM in NS 110 ML IVPB SCH ×2 (06:13→14:20)
--- NOTE | 2019-07-05 07:10 | NUR ---
HAND-OFF: Report given to Emerita NORIEGA.
[2019-07-05] MEDS ORDERED: DECADRON2 MG ORAL (07:15)
[2019-07-05] MEDS ORDERED: CYCLOBENZAPRINE10 MG ORAL (07:15)
--- NOTE | 2019-07-05 07:41 | NUR ---
NURSE NOTES: received report from HARI Tapia. patient sitting in chair. having breakfast. A&Ox4, verbally responsive. no respiratory distress noted. pain on rt knee. IV on [id number] intact. saline lock. monitor O2 without oxygen for discharge readiness. Bed in the lowest position and locked. call light within reach. will continue to provide plan of care.
[2019-07-05 08:00] VITALS: BP 117/63
[2019-07-05] MEDS: Cyclobenzaprine 10mg Tab ORAL SCH ×2 (08:33→12:12)
[2019-07-05] MEDS: Heparin 5000 units/ml inj SUBQ SCH (08:34)
[2019-07-05 12:00] VITALS: BP 132/63
--- NOTE | 2019-07-05 14:48 | NUR ---
CASE MANAGEMENT:NOTE PATIENT HAS BEEN REFERRED TO: [facility] P: [phone] F: [phone]
--- NOTE | 2019-07-05 15:53 | NUR ---
NURSE NOTES: patient discharged to home accompanied daughter in law with fair condition. A&Ox4, verbally responsive. no respiratory distress noted. no c/o pain at this time. removed IV and ID band. provided dc packet. checked and counted belongings with patient. obtained sign. [facility] will f/u at home. patient is aware. RN assisted the patient via WC to the lobby. patient left hospital safely.
--- NOTE | 2019-07-05 19:45 | Discharge Summary ---
DATE OF ADMISSION: 06/30/2019 DATE OF DISCHARGE: 07/05/2019 ADMISSION DIAGNOSES: 1. Intractable back pain. 2. Severe spinal stenosis. 3. Chronic obstructive pulmonary disease. 4. Lumbar radiculopathy. 5. Thalassemia. 6. Seizure disorder. DISCHARGE DIAGNOSES: 1. Intractable back pain. 2. Severe spinal stenosis. 3. Chronic obstructive pulmonary disease. 4. Lumbar radiculopathy. 5. Thalassemia. 6. Seizure disorder. HOSPITAL COURSE: The patient was admitted after mechanical fall and severe intractable back pain. She had a CAT scan and later MRI that showed severe spinal stenosis. Spine evaluation was obtained. The patient had x-rays done. She declined any surgery. She was given IV pain medications and muscle relaxants. Her pain did improve significantly. On discharge, she was stable. She was offered a retirement facility but declined. She will go home. Her steroids will be gradually weaned over the next week. She will follow up with her spine surgeon at [facility]. DIET: Cardiac diet. ACTIVITY: Ad-jose ramon. Dov Watson M.D. DR: Tejas JOB#: [id number] CC:
== END 2019-07-05 15:46 | disposition home health service (06) | DRG 552 ==
LOC: EDBD 18:48 → EMR 19:00 → 4E 20:26 → EDBEDREQ 21:04
DX: M48.061 Spinal stenosis, lumbar region without neurogenic claudication (principal); N39.0 Urinary tract infection, site not specified; M43.17 Spondylolisthesis, lumbosacral region; J44.9 Chronic obstructive pulmonary disease, unspecified; M54.16 Radiculopathy, lumbar region; D56.9 Thalassemia, unspecified; G40.909 Epilepsy, unspecified, not intractable, without status epilepticus; I13.10 Hypertensive heart and chronic kidney disease without heart failure, with stage 1 through stage 4 chronic kidney disease, or unspecified chronic kidney disease; N18.9 Chronic kidney disease, unspecified; Z88.6 Allergy status to analgesic agent; Z88.8 Allergy status to other drugs, medicaments and biological substances; M47.897 Other spondylosis, lumbosacral region; R26.2 Difficulty in walking, not elsewhere classified; Z98.1 Arthrodesis status; R50.9 Fever, unspecified
CPT/HCPCS: 36415; 70450; 71045; 72114; 72131; 72148; 72192; 80053; 81003; 84484; 85025; 85610; 85730; 87086; 93005; 96374; 96375; 99285; J2405; J7030; J8499